=== PATIENT | female | born 1990 | race Caucasian/White ===

== ENCOUNTER 2020-04-08 09:17 | Emergency (ER) | payer BC, MEDICAID ==
[2020-04-08 09:26] VITALS: BP 129/84
--- NOTE | 2020-04-08 09:51 | ER Document Report ---
ED General - General Stated Complaint: ANKLE PAIN/ SWELLING Time Seen by Provider: 04/08/20 09:40 Primary Care Provider: DELFIN ALMANZA [Primary Care Provider] - Follow up as needed ARMEN OLIVAREZ DO [ACTIVE STAFF] - Follow up as needed - HPI Notes: Chief Complaint: Left ankle pain Historian: History obtained from patient HPI: This is a 30-year-old female complaining of left ankle pain and swelling x2 days. Patient was carrying her large dog to the car when her foot slipped and she inverted her ankle. Patient complains of pain, swelling, bruising to the lateral ankle and foot. She is bearing weight with pain. She went to work yesterday and had a lot of pain when ambulating. She is taking Tylenol and Motrin without relief. No other injuries or trauma. ROS: Constitutional: no fevers. HEENT: no DAWSON, sore throat, or vision changes. CV: no chest pain or palpitations. Resp: no cough or SOB. GI: no abdominal pain, or n/v/d. : no dysuria, hematuria, or incont. MSK: left ankle pain and swelling Skin: no rashes or itching. Neuro: no seizures, weakness, numbness, or confusion. Hematological: no ecchymosis or easy bleeding. Endocrine: no polyuria/polydipsia, no heat/cold intolerance. Psych: no SI/HI, AH/VH or memory loss. PMHx: Reviewed and agree as charted by RN. PSHx: Reviewed and agree as charted by RN. SOCHx: Reviewed and agree as charted by RN. FHX: No significant familial comorbid conditions directly related to patient complaint Current Medications: Reviewed and agree with the patient medications as charted by the RN. Allergies: Reviewed and agree with the listed allergies as charted by the RN Physical Exam: Vitals: Reviewed in chart as documented by RN. General: Alert and in NAD. Head: Normocephalic; atraumatic Eyes: PERRLA, Conjunctivae clear sclerae non-icteric bilat ENT: no soft palate swelling or uvular deviation Neck: trachea midline, no unilateral swelling/tenderness/lymphadenopathy CV: RRR, no M/R/G; symmetric distal pulses Resp: respirations even and unlabored, CTA bilat. GI: abd soft and nondistended. NTTP. normal BS. no masses/HSM. no CVAT bilat MSK: LLEleft ankleno deformity or swelling over the lateral malleolus. Mild swelling and ecchymosis inferior to the lateral malleolus. Mild decrease in ankle range of motion due to pain. No ankle deformity. Achilles intact. No proximal lower leg tenderness. Mild tenderness to the lateral foot over the proximal and distal 5th metatarsal. no deformity noted. no plantar ecchymosis. Pulse 2+. Cap refill less than 3 seconds. Sensory intact distally. Full range of motion of the hip knee and toes, nttp. Skin: warm, moist, good turgor. no rash/lesions Neuro: Alert and oriented X 4. following CN 2-12 intact. no unilateral weakness/numbness Psych: No SI/HI or AH/VH. ED Results: Medical Decision-Making: Medical Decision-making/Differential Diagnosis: Consider various etiologies including but not limited to skin/soft tissue structure injury, MSK injury, strain/sprain, fracture, dislocation, bursitis, tendonitis, contusion, ect Plan- xr foot/ankle. pt requested motrin initially and later decided she wanted something stronger. norco given. imaging reviewed- no acute fracture /dislocation noted. she is NV intact. likely ankle/foot sprain. she declines crutches. WBAT to RLE. d/c home w/ RICE, tylenol/nsaids. temporary pain control. will give ortho referral for f/u if no improvement in 1 week. return factors discussed. This course of action was discussed with the patient and/or family. They were amenable to this, verbalized understanding, and were without further questions. - Related Data Allergies/Adverse Reactions: amoxicillin Allergy (Verified 04/08/20 10:02) Penicillins Allergy (Verified 04/08/20 10:01) Past Medical History - Social History Smoking Status: Unknown if Ever Smoked Family History: Reviewed & Not Pertinent Physical Exam - Vital signs Vitals: Temp Pulse Resp BP Pulse Ox 98.0 F 66 18 129/84 H 100 04/08/20 09:25 04/08/20 09:25 04/08/20 09:25 04/08/20 09:25 04/08/20 09:25 Course - Re-evaluation Re-evalutation: 04/08/20 11:16 Updated patient regarding negative x-rays of foot and ankle. Patient changed her mind and would like to have crutches to go home. Prashant wrap left ankle. She is to rice ankle and continue NSAIDs and Tylenol. Weightbearing as tolerated. Ortho referral given for follow-up if needed in 1 week. Return factors discussed. - Vital Signs Vital signs: Temp Pulse Resp BP Pulse Ox 98.0 F 66 18 129/84 H 100 04/08/20 09:25 04/08/20 09:25 04/08/20 09:25 04/08/20 09:25 04/08/20 09:25 - Laboratory Results Critical Laboratory Results Reviewed: No Critical Results - Radiology Results Critical Radiology Results Reviewed: No Critical Results Discharge - Discharge Clinical Impression: Sprain of foot, left Qualifiers: Encounter type: initial encounter Qualified Code(s): S93.602A - Unspecified sprain of left foot, initial encounter Left ankle sprain Qualifiers: Encounter type: initial encounter Involved ligament of ankle: unspecified ligament Qualified Code(s): S93.402A - Sprain of unspecified ligament of left ankle, initial encounter Condition: Stable Disposition: HOME, SELF-CARE Instructions: Sprained Ankle ([facility]) Additional Instructions: weight bearing as tolerated on left ankle. rest, ice, and elevate ankle. call to schedule follow up appointment with orthopedics if no improvement in symptoms after 1 week. return to the ER if your condition worsens. Forms: Return to Work Referrals: DELFIN ALMANZA [Primary Care Provider] - Follow up as needed ARMEN OLIVAREZ DO [ACTIVE STAFF] - Follow up as needed
[2020-04-08] MEDS ORDERED: IBUPROFEN 600 MG TABLET PO ONE (10:00)
[2020-04-08] MEDS ORDERED: HYDROCODONE/ACETAMINOPHEN 5-325 MG TABLET PO ONE (10:20)
--- NOTE | 2020-04-08 10:29 | RADIOLOGY REPORT (SQ) ---
EXAM DESCRIPTION: ANKLE LEFT COMPLETE IMAGES COMPLETED DATE/TIME: 04/08/2020 10:19 am REASON FOR STUDY: fall COMPARISON: None. NUMBER OF VIEWS: Three views. TECHNIQUE: AP, lateral, and oblique radiographic images acquired of the left ankle. LIMITATIONS: None. FINDINGS: MINERALIZATION: Normal. BONES: No acute fracture or dislocation. The talar dome is intact. JOINTS: The ankle mortise is intact. SOFT TISSUES: The Achilles tendon silhouette is intact. OTHER: Enthesophytes at the calcaneal insertion of the plantar fascia. IMPRESSION: No acute osseous abnormality of the left ankle. TECHNICAL DOCUMENTATION: JOB ID: [id number] 2010 [employer]- All Rights Reserved Reading location - IP/workstation name: [email or web address]
--- NOTE | 2020-04-08 10:31 | RADIOLOGY REPORT (SQ) ---
EXAM DESCRIPTION: FOOT LEFT COMPLETE IMAGES COMPLETED DATE/TIME: 04/08/2020 10:22 am REASON FOR STUDY: fall COMPARISON: None. NUMBER OF VIEWS: Three views. TECHNIQUE: AP, lateral and oblique radiographic images acquired of the left foot. LIMITATIONS: None. FINDINGS: MINERALIZATION: Normal. BONES: No acute fracture or dislocation. JOINTS: The normal tarsometatarsal alignment is preserved. SOFT TISSUES: No soft tissue swelling or radiopaque foreign body. OTHER: No other findings. IMPRESSION: No acute osseous abnormality of the left foot. TECHNICAL DOCUMENTATION: JOB ID: [id number] 2010 [employer]- All Rights Reserved Reading location - IP/workstation name: [email or web address]
== END 2020-04-08 11:50 | disposition home or self-care (01) ==
LOC: ER 09:17
DX: S93.402A Sprain of unspecified ligament of left ankle, initial encounter (principal); S93.602A Unspecified sprain of left foot, initial encounter; X50.0XXA Overexertion from strenuous movement or load, initial encounter; Y93.89 Activity, other specified; Z79.899 Other long term (current) drug therapy; Z79.1 Long term (current) use of non-steroidal anti-inflammatories (NSAID); Z87.891 Personal history of nicotine dependence; Z88.0 Allergy status to penicillin
CPT/HCPCS: 99283

== ENCOUNTER 2020-04-28 16:58 | Emergency (ER) | payer MEDICAID ==
[2020-04-28 17:20] VITALS: BP 148/83
--- NOTE | 2020-04-28 17:55 | ER Document Report ---
HPI - HPI Time Seen by Provider: 04/28/20 17:48 Context: Patient is a 30-year-old female presents emergency department with a chief complaint of left ankle pain. Patient was seen on April 08 here in the emergency department there was no fracture noted on her ankle x-ray. She was carrying her dog to the car and she ended up slipping and inverting her ankle. She is able to walk. Went back to work and ended up having more pain. She has not followed up with orthopedics. - ROS Systems Reviewed and Negative: Yes All other systems reviewed and negative - CONSTITUTIONAL Constitutional: DENIES: Fever, Chills - RESPIRATORY Respiratory: DENIES: Trouble Breathing, Coughing - MUSCULOSKELETAL Musculoskeletal: REPORTS: Extremity pain - Left ankle, Swelling - Left ankle - DERM Skin Color: Normal Skin Problems: None Past Medical History - General Information source: Patient - Social History Smoking Status: Unknown if Ever Smoked Family History: Reviewed & Not Pertinent - Past Medical History Cardiac Medical History: Reports: Hx Hypertension Neurological Medical History: Reports: Hx Migraine Psychiatric Medical History: Reports: Hx Depression Past Surgical History: Reports: Hx Appendectomy, Hx Section - x3, Hx C holecystectomy, Hx Gynecologic Surgery - 4 D&C 1 D&E, Hx Oral Surgery - wisdom teeth Vertical Provider Document - CONSTITUTIONAL Agree With Documented VS: Yes Exam Limitations: No Limitations General Appearance: No Apparent Distress - HEENT HEENT: Atraumatic, Normocephalic, PERRLA - NECK Neck: Normal Inspection - RESPIRATORY Respiratory: No Respiratory Distress - CARDIOVASCULAR Cardiovascular: Regular Rate, Regular Rhythm Pulses: Normal: Posterior tibial, Dorsalis pedis - MUSCULOSKELETAL/EXTREMETIES Musculoskeletal/Extremeties: FROM, Tender - Left foot, Edema - Left lateral ankle - NEURO Level of Consciousness: Awake, Alert, Appropriate Motor/Sensory: No Motor Deficit, No Sensory Deficit - DERM Integumentary: Warm, Dry, No Rash Course - Re-evaluation Re-evalutation: 04/28/20 19:42 X-rays did not show any fractures. Will place patient in a splint. Capillary refill less than 3 seconds. Dorsalis pedis and posterior tibial pulses 2+. No vascular compromise noted. Strongly encourage the patient to follow-up with orthopedics. Follow-up precautions were given. Verbal discharge instructions were given to the patient. They verbalized understanding. They are stable for discharge. - Vital Signs Vital signs: Temp Pulse Resp BP Pulse Ox 98.3 F 88 16 148/83 H 99 04/28/20 17:19 04/28/20 17:19 04/28/20 17:19 04/28/20 17:19 04/28/20 17:19 - Laboratory Results Critical Laboratory Results Reviewed: No Critical Results - Radiology Results Critical Radiology Results Reviewed: No Critical Results Procedures - Immobilization Left Ankle Pre-Proc Neuro Vasc Exam: Normal Immobilizer type: Crutches, Short Leg Posterior Performed by: PCT Post-Proc Neuro Vasc Exam: Normal, Unchanged from pre-exam Discharge - Discharge Clinical Impression: Left ankle pain Qualifiers: Chronicity: acute Qualified Code(s): M25.572 - Pain in left ankle and joints of left foot Condition: Stable Disposition: HOME, SELF-CARE Additional Instructions: You were seen today in the emergency department for continued foot pain. Your x-ray did not show any fractures. Follow-up with orthopedics in regards to this visit. Continue ibuprofen 600 mg every 6 hours for your pain. Forms: Return to Work Referrals: [facility] [Provider Group] - Follow up tomorrow [facility] [Provider Group] - Follow up tomorrow
--- NOTE | 2020-04-28 18:52 | RADIOLOGY REPORT (SQ) ---
EXAM DESCRIPTION: ANKLE LEFT COMPLETE; FOOT LEFT COMPLETE IMAGES COMPLETED DATE/TIME: 04/28/2020 6:23 pm REASON FOR STUDY: continued left ankle/foot pain COMPARISON: 04/08/2020. FINDINGS: Three views left ankle: No bone, joint or soft tissue abnormality. Three views left foot: No bone, joint or soft tissue abnormality. TECHNICAL DOCUMENTATION: JOB ID: [id number] Reading location - IP/workstation name: [email or web address]
--- NOTE | 2020-04-28 18:52 | RADIOLOGY REPORT (SQ) ---
EXAM DESCRIPTION: ANKLE LEFT COMPLETE; FOOT LEFT COMPLETE IMAGES COMPLETED DATE/TIME: 04/28/2020 6:23 pm REASON FOR STUDY: continued left ankle/foot pain COMPARISON: 04/08/2020. FINDINGS: Three views left ankle: No bone, joint or soft tissue abnormality. Three views left foot: No bone, joint or soft tissue abnormality. TECHNICAL DOCUMENTATION: JOB ID: [id number] Reading location - IP/workstation name: [email or web address]
== END 2020-04-28 23:54 | disposition home or self-care (01) ==
LOC: ER 16:58
DX: M25.572 Pain in left ankle and joints of left foot (principal); M79.89 Other specified soft tissue disorders; W01.0XXA Fall on same level from slipping, tripping and stumbling without subsequent striking against object, initial encounter; I10 Essential (primary) hypertension
CPT/HCPCS: 99283